=== PATIENT | female | born 1930 | race Caucasian/White ===

== ENCOUNTER 2016-11-11 08:34 | Day surgery (SDC) | payer OTHER, BC ==
[2016-11-10 12:14] VITALS: BMI 34.2
[2016-11-11 09:04] LABS: URINE APPEARANCE CLEAR; URINE BILIRUBIN NEGATIVE (NEGATIVE); URINE COLOR LTYELLOW; URINE GLUCOSE (UA) NEGATIVE (NEGATIVE); URINE KETONE NEGATIVE (NEGATIVE); URINE NITRITE NEGATIVE (NEGATIVE); URINE PROTEIN NEGATIVE (NEGATIVE); URINE UROBILINOGEN NEGATIVE E.U./dl (0.2-1.0)
[2016-11-11 09:10] LABS: URINE BLOOD 1+ (NEGATIVE); URINE LEUK ESTERASE 2+ (NEGATIVE)
[2016-11-11 09:49] LABS: URINE HYALINE CAST 1 /lpf; URINE MUCUS RARE; URINE RBC 4 /hpf (0-3); URINE WBC 27 /hpf (3-5)
[2016-11-11] MEDS ORDERED: MIDAZOLAM HCL 2 MG/2 ML SINGLE DOSE VIAL ONE ×2 (12:12→12:29)
[2016-11-11] MEDS ORDERED: ceFAZolin SODIUM 1 GM VIAL ONE (12:16)
[2016-11-11] MEDS ORDERED: ceFAZolin SODIUM 1 GM VIAL IVPB ONE (12:16)
[2016-11-11] MEDS ORDERED: LIDOCAINE HCL 1%, 10 MG/ML (20ML VIAL) IJ ONE (12:23)
[2016-11-11] MEDS ORDERED: LIDOCAINE HCL 1%, 10 MG/ML (20ML VIAL) NR ONE (12:23)
[2016-11-11] MEDS ORDERED: oxyCODONE HCL 5 MG TABLET PO PRN (14:59)
[2016-11-11] MEDS ORDERED: ACETAMINOPHEN 325 MG TABLET (FP) PO PRN (14:59)
[2016-11-11] MEDS ORDERED: ONDANSETRON 4 MG/2 ML VIAL IVPUSH PRN (14:59)
[2016-11-11 15:09] VITALS: TEMP 97.9
[2016-11-11 16:51] VITALS: BP 124/58; PULSE 64
--- NOTE | 2016-11-12 12:32 | OP ---
DATE OF OPERATION: 11/11/2016 PREOPERATIVE DIAGNOSIS: Right breast microcalcification. POSTOPERATIVE DIAGNOSIS: Right breast microcalcification. PROCEDURE: Right breast wire localized excision. SURGEON: Karla Soliman MD ANESTHESIA: Local with IV sedation. ESTIMATED BLOOD LOSS: Minimal. COMPLICATIONS: None. This is a sterile procedure. INDICATIONS: The patient had a screening mammogram that noted cluster microcalcifications in the upper outer right breast. Decision with her daughter was made to go ahead and excise this area for evaluation. The procedure was discussed with all of the questions answered. PROCEDURE IN DETAIL: The patient was brought to [facility] and taken to breast imaging where a wire was used to localize the calcifications in the upper outer right breast and then brought up to the operating room. After IV sedation and IV antibiotics, the right breast was prepped and draped in the usual sterile fashion. The area in the upper right breast was anesthetized with 1% lidocaine without epinephrine. A curvilinear incision was made in the right 12 o'clock location. A wire was used to guide to get down to the area. The tissue was excised en bloc and sent for a specimen radiograph. Initially the specimen radiograph looked like the calcification was not as well visualized, but by the 3rd pictures it seemed like they were kind of smudged; however, I did take additional tissue medially and laterally. In the L1 of the specimen there is some more calcification, though I believe that the original specimen did have a calcification that we were trying to localize that were less evident. The radiologist agrees with this. At this point, once hemostasis was assured, the parenchyma was approximated with interrupted 2-0 Vicryl. Skin was approximated with interrupted 3-0 Vicryl and running 4-0 Prolene. A sterile dressing with Tegaderm and 4X4s was applied. She tolerated the procedure well and was taken to recovery in good condition. Cesar [id number]
--- NOTE | 2016-11-14 13:55 | PATH ---
Surgical Pathology Report Patient Name: GERALDO HAMEED [facility]. Rec. #: [id number] /Age/Gender: 1930 (Age: 86) / F Account: [id number] Location: [facility] SURGICAL Taken: 11/11/2016 Received: 11/11/2016 Reported: 11/14/2016 Physicians: Karla Soliman M.D. Specimen(s) Received A: RIGHT BREAST EXCISIONAL BIOPSY B: RIGHT BREAST MEDIAL TISSUE C: RIGHT BREAST LATERAL TISSUE Clinical History Microcalcifications Final Diagnosis A. BREAST, RIGHT, EXCISIONAL BIOPSY: BENIGN FATTY BREAST TISSUE WITH FOCI OF FIBROCYSTIC CHANGE WITH APOCRINE METAPLASIA, DUCT DILATATION, CYSTS FORMATION WITH FOCAL EVIDENCE OF CYST RUPTURE; FOCAL COARSE CALCIFICATIONS IN VASCULAR ROSE. B. BREAST, RIGHT, MEDIAL TISSUE, EXCISION: BENIGN BREAST TISSUE WITH FIBROCYSTIC CHANGE WITH FOCAL USUAL DUCTAL HYPERPLASIA, APOCRINE METAPLASIA, AND FIBROADENOMATOID CHANGE WITH ASSOCIATED FOCAL MICROCALCIFICATIONS IN BENIGN DUCTS AND COARSE CALCIFICATIONS IN BENIGN STROMA. C. BREAST, RIGHT, LATERAL TISSUE, EXCISION: BENIGN BREAST TISSUE WITH FOCAL FIBROCYSTIC CHANGE WITH DUCT DILATATION AND FOCAL FIBROADENOMATOID CHANGE WITH ASSOCIATED FOCAL MICROCALCIFICATIONS IN BENIGN DUCTS AND COARSE CALCIFICATIONS AND BENIGN STROMA. Electronically Signed Eren Duran M.D. Gross Description A. Received fresh on an AccuGrid labeled "right breast excisional biopsy" is a 6.5 x 3.7 x 1.0 cm irregular, unoriented portion of fibroadipose tissue with a needle localization wire present. There is no skin present. The specimen is inked black and serially sectioned. Sectioning reveals foci of white fibrous tissue. No definitive masses are identified. The specimen is entirely and sequentially submitted in 10 cassettes with the area of the needle localization wire in cassettes 3-7. B. Received fresh on an AccuGrid labeled "right breast medial tissue" is a 5.5 x 4.0 x 1.3 cm irregular, unoriented portion of fibroadipose tissue. There is no needle localization wire present. There is no skin present. The specimen is inked black and serially sectioned. Sectioning reveals foci of white fibrous tissue. No definitive masses are identified. The specimen is entirely and sequentially submitted in 12 cassettes with the area of the lesion identified by mammography in cassette 6-7. C. Received fresh on an AccuGrid labeled "right breast lateral tissue" is a 5.5 x 3.8 x 1.7 cm irregular, unoriented portion of fibroadipose tissue. There is no needle localization wire present. There is no skin present. The specimen is inked black and serially sectioned. Sectioning reveals foci of white fibrous tissue. No definitive masses are identified. Automation Application Engineer sections are sequentially submitted in 8 cassettes with the area of the lesion identified by mammography in cassettes 2-5. Time to fixation: <1h Total formalin fixation time: 7h 11/11/2016 [facility]11/11/2016
== END 2016-11-11 16:51 | disposition home or self-care (01) ==
LOC: JASU-SURG 08:34
PROVIDERS: ATTEND Surgery
PROC: 0HBT0ZX Excision of Right Breast, Open Approach, Diagnostic (ICD-10-PCS; principal; 2016-11-11 12:00)
DX: D24.1 Benign neoplasm of right breast (principal)
CPT/HCPCS: 19281; 81003; 81015; 88307-TC; 94760

== ENCOUNTER 2019-09-15 22:22 | Inpatient (IN) | payer OTHER, BC ==
[2019-09-15 22:28] VITALS: BMI 34.2
--- NOTE | 2019-09-15 23:47 | PDOC ---
Documentation entered by Christine Ospina SCRIBE, acting as scribe for Berenice Jimenez MD. Berenice Jimenez MD: This documentation has been prepared by the Bhavesh thayer Nirvannie, SCRIBE, under my direction and personally reviewed by me in its entirety. I confirm that the documentation accurately reflects all work, treatment, procedures, and medical decision making performed by me. 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 Allergies: Reanna Primary Care Physician: Dr. Smiley String Laster: Dr. Karimi - Physicial Exam PE: 09/15/19 23:47 89-year-old female had an episode of confusion, word searching while speaking to her daughter. Her symptoms have now resolved. She has a history of TIAs and is on anticoagulants 09/16/19 01:24 Alert 89-year-old female surrounded by family members Head normocephalic atraumatic Neck is supple Lungs are clear to auscultation bilaterally CVS irregular regular rhythm S1-S2 Abdomen nontender Skin warm and dry Extremities no lower extremity edema, or erythema Neuro alert and oriented conversant no drift motor strength 5 of 5 bilaterally clear speech, no facial droop - Medical Decision Making 09/16/19 01:52 CAT scan of the head findings There is no acute intraparenchymal hemorrhage There is no intra-or extra-axial collection There is no mass-effect or midline shift There is a 1.2 x 2 x 1.7 cm area of diminished density in the left anterior temporal lobe suggesting acute ischemia Decker-white matter differentiation is maintained The ventricles are normal size and position for the patient's age There is chronic periventricular small vessel ischemic change The paraspinal paranasal sinuses and mastoid air cells are unopacified Calvarium and soft tissues are unremarkable 09/16/19 01:54 Patient admitted for TIA
[2019-09-15] MEDS ORDERED: ACETAMINOPHEN 1000 MG/100 ML VIAL (NON FORMULARY) IVPB ONE (23:57)
[2019-09-16] MEDS ORDERED: ACETAMINOPHEN INJECTION 100 ML IVPB ONE
[2019-09-16] MEDS ORDERED: ASPIRIN 81 MG CHEWABLE TABLETS PO ONE (00:16)
[2019-09-16] MEDS: SODIUM CHLORIDE 1,000 ML IV SCH (00:28)
[2019-09-16] MEDS ORDERED: ASPIRIN 81 MG CHEWABLE TABLETS ONE (00:33)
[2019-09-16 00:56] LABS: BASO % 0.4 % (0-2.0); EOS % 2.9 % (0-4.5); HEMATOCRIT 40.7 % (32.4-45.2); LYMPH % 22.4 % (8-40); MCH 33.6 pg (25.7-33.7); MCHC 34.3 g/dl (32.0-36.0); MEAN CELL VOLUME 98.1 fl (80-96); MONO % 7.5 % (3.8-10.2); NEUT % 66.8 % (42.8-82.8); PLATELET COUNT 142 K/MM3 (134-434); RBC 4.15 M/mm3 (3.60-5.2); RDW 13.4 % (11.6-15.6); WHITE BLOOD COUNT 7.1 K/mm3 (4.0-10.0)
[2019-09-16 00:57] LABS: INR 2.37 (0.83-1.09); PROTHROMBIN TIME (PATIENT) 28.2 SEC (9.7-13.0)
--- NOTE | 2019-09-16 00:58 | PDOC ---
History of Present Illness <Berenice Jimenez - Last Filed: 09/16/19 01:26> - History of Present Illness Initial Comments: 09/16/19 01:57 Ms. Finney is a 89 y/o woman w/hx sick sinus syndrome s/p pacemaker on xarelto, HTN, asthma, prior CVAs with no residual deficits presenting 1.5 hours after an episode of word finding difficulty and nonsensical arm movements. She is accompanied by a friend who witnessed the event. THey report that while on the phone with her daughter she had word finding difficulty, and her R arm was grasping outwards. The episode resolved entirely in 5 minutes. She denies any weakness, confusion, paresthesias, speech impairments, or pain anywhere at this time. <Artis May - Last Filed: 09/16/19 02:19> - General Chief Complaint: Altered Mental Status Stated Complaint: SLURRED SPEECH Time Seen by Provider: 09/15/19 23:22 Past History <Berenice Jimenez - Last Filed: 09/16/19 01:26> - Past Medical History Anemia: No Asthma: Yes Cancer: No Cardiac Disorders: Yes (PACEMAKER) CVA: Yes COPD: No CHF: No Dementia: No Diabetes: No GI Disorders: No Disorders: No HTN: Yes Hypercholesterolemia: No Liver Disease: No Seizures: No Thyroid Disease: No - Surgical History Abdominal Surgery: No Appendectomy: No Cardiac Surgery: No (PACEMAKER) Cholecystectomy: No Lung Surgery: No Neurologic Surgery: No Orthopedic Surgery: Yes (BOTH HANDS) - Immunization History Immunization Up to Date: No - Psycho Social/Smoking Cessation Hx Smoking Status: No Smoking History: Never smoked Have you smoked in the past 12 months: No Number of Cigarettes Smoked Daily: 0 Hx Alcohol Use: Yes (Ocassional) Drug/Substance Use Hx: No Substance Use Type: Alcohol Hx Substance Use Treatment: No <Artis May - Last Filed: 09/16/19 02:19> - Past Medical History Allergies/Adverse Reactions: Allergies Allergy/AdvReac Type Severity Reaction Status Date / Time No Known Drug Allergies Allergy Unknown Verified 09/15/19 22:28 CLAMS Allergy Severe Vomiting Uncoded 09/15/19 22:28 Home Medications: Ambulatory Orders Metoprolol Succinate [Toprol XL -] 50 mg PO DAILY 12/09/14 Albuterol 0.083% Nebulizer Nati [Ventolin 0.083% Nebulizer Soln -] 1 neb NEB TID PRN 10/28/15 Betaxolol HCl 0.25% [Betoptic S 0.25% -] 1 drop OD BID 10/28/15 Rivaroxaban [Xarelto] 15 mg PO DAILY 10/28/15 Review of Systems - Review of Systems Able to Perform ROS?: Yes Comments:: 09/16/19 01:56 GENERAL/CONSTITUTIONAL: No fever or chills. No weakness. HEAD, EYES, EARS, NOSE AND THROAT: No change in vision. No ear pain or discharge. No sore throat. CARDIOVASCULAR: No chest pain or shortness of breath RESPIRATORY: No cough, wheezing, or hemoptysis. GASTROINTESTINAL: No nausea, vomiting, diarrhea or constipation. GENITOURINARY: No dysuria, frequency, or change in urination. MUSCULOSKELETAL: No joint or muscle swelling or pain. No neck or back pain. SKIN: No rash NEUROLOGIC: No headache, vertigo, loss of consciousness, or change in strength/sensation. ENDOCRINE: No increased thirst. No abnormal weight change HEMATOLOGIC/LYMPHATIC: No anemia, easy bleeding, or history of blood clots. ALLERGIC/IMMUNOLOGIC: No hives or skin allergy. <Artis May - Last Filed: 09/16/19 02:19> *Physical Exam - Vital Signs Last Vital Signs Temp Pulse Resp BP Pulse Ox 97.2 F L 95 H 18 137/76 96 09/15/19 22:24 09/15/19 22:24 09/15/19 22:24 09/15/19 22:24 09/15/19 22:24 <Berenice Jimenez - Last Filed: 09/16/19 01:26> - Vital Signs Last Vital Signs Temp Pulse Resp BP Pulse Ox 97.2 F L 95 H 18 137/76 96 09/15/19 22:24 09/15/19 22:24 09/15/19 22:24 09/15/19 22:24 09/15/19 22:24 - Physical Exam 09/16/19 01:56 GENERAL: Awake, alert, and fully oriented, in no acute distress HEAD: No signs of trauma, normocephalic, atraumatic EYES: PERRLA, EOMI, sclera anicteric, conjunctiva clear ENT: Auricles normal inspection, hearing grossly normal, nares patent, oropharynx clear without exudates. Moist mucosa NECK: Normal ROM, supple, no lymphadenopathy, JVD, or masses LUNGS: No distress, speaks full sentences, clear to auscultation bilaterally HEART: Regular rate and rhythm, normal S1 and S2, no murmurs, rubs or gallops, peripheral pulses normal and equal bilaterally. ABDOMEN: Soft, nontender, normoactive bowel sounds. No guarding, no rebound. No masses EXTREMITIES : Normal inspection, Normal range of motion, no edema. No clubbing or cyanosis NEUROLOGICAL: Cranial nerves II through XII grossly intact. Normal speech, normal gait, no focal sensorimotor deficits SKIN: Warm, Dry, normal turgor, no rashes or lesions noted <Artis May - Last Filed: 09/16/19 02:19> NIH Stroke Scale - Last Known Well Date/Time & Onset Date Last Known Well: 09/15/19 Time Last Known Well: 22:00 - Initial Evaluation Level of consciousness: Alert Ask patient the month and their age: Answers both correctly Ask patient to open & close eyes; make fist and let go: Obeys both correctly Best gaze (horizontal eye movement): Normal Visual field testing: No visual field loss Facial paresis (Show teeth/raise eyebrows/close eyes tight): Normal symmetrical movement Motor Function: Left Arm: Normal Motor Function: Right Arm: Normal (extends arm 90 (or 45) degrees for 10 seconds without drift Motor Function: Left Leg: Normal (extends leg 30 degrees for 5 seconds without drift) Motor Function: Right Leg: Normal (extends leg 30 degrees for 5 seconds without drift) Limb Ataxia: No ataxia Sensory(Use pinprick test arms,legs,trunk,face/side to side): Normal Best language (Describe picture, name items, read sentences): No Aphasia Dysarthria (read several words): Normal articulation Extinction and Inattention: No abnormality - Total Score NIH Stroke Scale Score: 0 <Artis May - Last Filed: 09/16/19 02:19> tPA Exclusion Checklist 0-3hr - Time Elapsed Date last known well: 09/15/19 Time last known well: 22:00 Elaspsed time: Day(s) and 4 Hour(s) and 18 Minutes - Thrombolytic Therapy Candidate Is the patient eligible for Thrombolytic Therapy?: No - Exclusion Criteria 0-3hr SBP greater than 185 or DBP greater than 110mmHg despite tx: No Recent IC/spinal surgery,head trauma or stroke w/in last 3mo: No Hx of previous IC hemorrhage, IC neoplasm, AVM or aneurysm: No Active internal bleeding: No Blding diathesis(low plt ct, inc PTT,INR>1.7 or use of NOAC): No Symptoms suggest subarachnoid hemorrhage: No CT demonstrates multilobar infarct(>1/3 cerebral hemiphere): No Arterial puncture at noncompressible site in previous 7 days: No Blood glucose concentration less than 50mg/dL (2.7mmol/L): No - Relative Exclusion Criteria 0-3h Care team unable to determine eligibility: No IV/IA thrombolysis/thrombectomy @ another hosp prior arrival: No Life expectancy <1yr/severe co-morbid illness/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: No : No Patient/family refused: No Stroke severity too mild (non-disabling): Yes Recent acute AL (w/in previous 3 months): No Seizure at onset with postictal residual neuro impairments: No Major surgery or serious trauma w/in previous 14 days: No Recent GI or hemorrhage (w/in previous 21 days): No - Ineligibility reason(s) Reasons No tPA given: See reason(s) noted above <Artis May - Last Filed: 09/16/19 02:19> Critical Care Time/MDM Note - Medical Decision Making Note: 09/16/19 02:14 89F w/hx sick sinus s/p pacemaker on xarelto, prior CVAs p/w 5 minute episode of word finding difficulty, now resolved, with no focal neuro deficits on exam. NIHSS = 0 at this time. Ddx includes CVA, TIA, seizure. Plan: CT Head stroke protocol CBC CMP EKG CXR Troponin PT/INR, APTT Cholesterol panel UA Urine culture BGM Dispo: Admit --- CT Head read called in by radiology - CT notable for L temporal diminished attenuation suggestive of acute ischemia. --- Case discussed with Dr. Hodgson (Neurology). Plan for admission for inpatient MRI, 81 ASA, and Xarelto dosage. --- CBC, CMP - wnl troponin - negative Case discussed with Dr. Fletcher. Patient admitted. <Artis May - Last Filed: 09/16/19 02:19> Discharge <Berenice Jimenez - Last Filed: 09/16/19 01:26> - Discharge Information Problems reviewed: Yes - Admission Yes <Artis May - Last Filed: 09/16/19 02:19> - Discharge Information Clinical Impression/Diagnosis: CVA (cerebral vascular accident) Qualifiers: CVA mechanism: unspecified Qualified Code(s): I63.9 - Cerebral infarction, unspecified Condition: Stable
[2019-09-16 00:59] LABS: ACTIVATED PTT 58.5 SECONDS (25.2-36.5)
[2019-09-16 01:10] LABS: ALBUMIN 3.6 g/dl (3.4-5.0); ALK PHOS 72 U/L (45-117); ANION GAP 8 MMOL/L (8-16); BILIRUBIN,TOTAL 0.8 mg/dL (0.2-1); BLOOD UREA NITROGEN 18.7 mg/dL (7-18); CALCIUM 8.2 mg/dL (8.5-10.1); CHLORIDE 107 mmol/L (98-107); CHOLESTEROL 156 mg/dL (50-200); CO2 26 mmol/L (21-32); CREATININE 0.9 mg/dL (0.55-1.3); GLUCOSE,RANDOM 89 mg/dL (74-106); HDL CHOLESTEROL 53 mg/dL (40-60); LDL CHOLESTEROL (ONLY SJRH) 89 mg/dL (5-100); POTASSIUM 4.4 mmol/L (3.5-5.1); SGOT/AST 25 U/L (15-37); SGPT/ALT 22 U/L (13-61); SODIUM 141 mmol/L (136-145); TOT PROT 7.2 g/dl (6.4-8.2); TRIGLYCERIDES 79 mg/dL (0-150)
[2019-09-16] MEDS ORDERED: RIVAROXABAN 15 MG TABLET PO ONE (01:25)
[2019-09-16] MEDS ORDERED: ALBUTEROL SO4 0.083% IH SOL 2.5 MG/3 ML VIAL.NEB. NEB PRN (01:47)
[2019-09-16 03:39] LABS: EPI CELLS 0.6 /HPF (0-5/HPF); HYALINE CASTS 1 /lpf (0-8); URINE APPEARANCE CLEAR; URINE BACTERIA 5.3 /hpf (NEGATIVE); URINE BILIRUBIN NEGATIVE (NEGATIVE); URINE GLUCOSE (UA) NEGATIVE (NEGATIVE); URINE KETONE NEGATIVE (NEGATIVE); URINE LEUK ESTERASE TRACE (NEGATIVE); URINE NITRITE NEGATIVE (NEGATIVE); URINE PROTEIN NEGATIVE (NEGATIVE); URINE RBC 1 /hpf (0-4); URINE UROBILINOGEN 0.2 mg/dL (0.2-1.0); URINE WBC 5 /hpf (0-5)
[2019-09-16 06:51] LABS: URINE COLOR 476153
--- NOTE | 2019-09-16 09:27 | EKG ---
Test Reason : Blood Pressure : / mmHG Vent. Rate : 077 BPM Atrial Rate : 057 BPM P-R Int : 000 ms QRS Dur : 080 ms QT Int : 408 ms P-R-T Axes : 000 -16 001 degrees QTc Int : 461 ms ATRIAL FIBRILLATION NONSPECIFIC ST AND T WAVE ABNORMALITY ABNORMAL ECG WHEN COMPARED WITH ECG OF 05-NOV-2016 09:30, ATRIAL FIBRILLATION HAS REPLACED SINUS RHYTHM NONSPECIFIC T WAVE ABNORMALITY HAS REPLACED INVERTED T WAVES IN ANTERIOR LEADS Confirmed by Fernando Dumont ([id number]) on 09/16/2019 9:27:25 AM Referred By: Confirmed By:Fernando Dumont
--- NOTE | 2019-09-16 10:32 | CON.NEURO ---
Consult Consult Specialty:: Rema Referred by:: ER - History of Present Illness History of Present Illness: 89 years old [place] with sudden onset of cofsuion., Called last night Head Ct was normal Humphries=d bilaterla leg weakness no CP no recent travel no fever WBcs was normal - History Source History Provided By: Patient - Past Medical History Cardio/Vascular: Yes: AFIB, Other (pacer dep) Pulmonary: Yes: Asthma Psych: Yes: Anxiety Musculoskeletal: Yes: Osteoarthritis - Past Surgical History Past Surgical History: Yes: Permanent Pacemaker - Alcohol/Substance Use Hx Alcohol Use: Yes (Ocassional) History of Substance Use: reports: None - Smoking History Smoking history: Never smoked Have you smoked in the past 12 months: No Aproximately how many cigarettes per day: 0 - Social History ADL: Independent History of Recent Travel: No Home Medications - Allergies Allergies/Adverse Reactions: Allergies Allergy/AdvReac Type Severity Reaction Status Date / Time No Known Drug Allergies Allergy Unknown Verified 09/15/19 22:28 CLAMS Allergy Severe Vomiting Uncoded 09/15/19 22:28 - Home Medications Home Medications: Ambulatory Orders Metoprolol Succinate [Toprol XL -] 50 mg PO BID 12/09/14 Betaxolol HCl 0.25% [Betoptic S 0.25% -] 1 drop OD BID 10/28/15 Rivaroxaban [Xarelto] 20 mg PO DAILY 10/28/15 Albuterol 2.5/Ipratropium 0.5 [Duoneb -] 1 amp IH DAILY 09/16/19 Digoxin [Lanoxin -] 0.125 mg PO DAILY 09/16/19 Montelukast Sodium [Singulair] 10 mg PO DAILY 09/16/19 Vit C/Vit E AC/Lut/Copper/Zinc [Preservision Lutein Softgel] 1 cap PO DAILY 09/16/19 Family Medical History Family History: Unremarkable Review of Systems - Review of Systems Constitutional: reports: No Symptoms Eyes: reports: No Symptoms HENT: reports: No Symptoms Neurological: reports: Confusion, Headache, Incoordination, Numbness, Parasthesia Physical Exam-Neuro Vital Signs: Vital Signs Temperature 97.7 F 09/16/19 07:50 Pulse Rate 75 09/16/19 07:50 Respiratory Rate 18 09/16/19 07:50 Blood Pressure 116/86 09/16/19 07:50 O2 Sat by Pulse Oximetry (%) 95 09/16/19 07:50 Constitutional: Yes: Well Nourished Neck: Yes: WNL Cardiovascular: Yes: WNL Labs: CBC, BMP 09/16/19 00:43 09/16/19 00:20 INR, PTT INR 2.37 (0.83-1.09) H 09/16/19 00:20 - Neuro Exam Level Of Consciousness: Yes: Oriented to Person, Oriented to Place, Oriented to Time Eyes: Yes: PERRLA Speech: WNL Dominant Hand: Right Cranial Nerves II-XII Intact: Yes Gag: Present DTR's: 1+ Right Bicep, 1+ Left Tricep, 1+ Right Tricep, 1+ Left Brachioradialis Response to light touch: Normal Response to pain prick: Normal Response to temperature: Normal Response to vibration: Normal Motor Strength: 3/5: Left Arm, Right Arm, Left Leg, Right Leg Gait: Deferred Imaging - Results Cat Scan: Image Reviewed Problem List - Problems (1) CVA (cerebral vascular accident) Code(s): I63.9 - CEREBRAL INFARCTION, UNSPECIFIED Qualifiers: CVA mechanism: unspecified Qualified Code(s): I63.9 - Cerebral infarction, unspecified Assessment/Plan doubt it is a TIA [facility] Shyam SCD Thanks Mert Hodgosn
[2019-09-16] MEDS ORDERED: DIGOXIN 0.125 MG TABLET (FP) ONE (11:01)
[2019-09-16] MEDS: DIGOXIN 0.125 MG TABLET (FP) PO SCH (11:06)
[2019-09-16] MEDS: metoPROLOL SUCCINATE 25 MG TAB.SR.24H (FP) PO SCH (11:06)
--- NOTE | 2019-09-16 12:59 | HP ---
Admitting History and Physical - Primary Care Physician PCP: Donavan Smiley - Admission Chief Complaint: slurred speech History of Present Illness: 89 YO Female with Hx of ATF (on a/c), Htn, asthma who resides alone in the community abruptly developed difficulty speaking while on the phone with her daughter (who lives in [place]). There was some possible focal mobility loss of the RUE but that was short lived. The speech difficulty apparently resolved when she was seen in the ER. She denied any CP; SOB, wheezing, cough, gagging, visual changes, tremors. She did not lose ability to walk. She had a similar episode many yrs ago resulting in a CVA. She was taken to ER by a friend. History Source: Patient, Family Member Limitations to Obtaining History: Poor Historian - Past Medical History BOX TENDER: Yes: CVA (old) Cardiovascular: Yes: AFIB, HTN, Other (pacer dep) Pulmonary: Yes: Asthma Psych: Yes: Anxiety Musculoskeletal: Yes: Osteoarthritis Additional Past Medical History: Mac degen; glaucoma - Past Surgical History Past Surgical History: Yes: Permanent Pacemaker - Smoking History Smoking history: Never smoked Have you smoked in the past 12 months: No Aproximately how many cigarettes per day: 0 - Alcohol/Substance Use Hx Alcohol Use: Yes (Ocassional) History of Substance Use: reports: None - Social History Usual Living Arrangement: Yes: Alone ADL: Independent History of Recent Travel: No Home Medications - Allergies Allergies/Adverse Reactions: Allergies Allergy/AdvReac Type Severity Reaction Status Date / Time No Known Drug Allergies Allergy Unknown Verified 09/15/19 22:28 CLAMS Allergy Severe Vomiting Uncoded 09/15/19 22:28 - Home Medications Home Medications: Ambulatory Orders Metoprolol Succinate [Toprol XL -] 50 mg PO BID 12/09/14 Betaxolol HCl 0.25% [Betoptic S 0.25% -] 1 drop OD BID 10/28/15 Rivaroxaban [Xarelto] 20 mg PO DAILY 10/28/15 Albuterol 2.5/Ipratropium 0.5 [Duoneb -] 1 amp IH DAILY 09/16/19 Digoxin [Lanoxin -] 0.125 mg PO DAILY 09/16/19 Montelukast Sodium [Singulair] 10 mg PO DAILY 09/16/19 Vit C/Vit E AC/Lut/Copper/Zinc [Preservision Lutein Softgel] 1 cap PO DAILY 09/16/19 Family Medical History Family History: Unremarkable Review of Systems - Review of Systems Constitutional: reports: Weakness (resolved) Eyes: reports: No Symptoms HENT: reports: No Symptoms Neck: reports: No Symptoms Cardiovascular: reports: No Symptoms Respiratory: reports: No Symptoms Gastrointestinal: reports: Other (loose stools after eating spinach) Genitourinary: reports: Incontinence (not new) Breasts: reports: No Symptoms Reported Musculoskeletal: reports: Decreased ROM Integumentary: reports: No Symptoms Neurological: reports: Change in Speech (resolved) Endocrine: reports: No Symptoms Psychiatric: reports: No Symptoms Physical Examination Vital Signs: Vital Signs Temperature 97.7 F 09/16/19 07:50 Pulse Rate 75 09/16/19 07:50 Respiratory Rate 18 09/16/19 07:50 Blood Pressure 116/86 09/16/19 07:50 O2 Sat by Pulse Oximetry (%) 95 09/16/19 07:50 Constitutional: Yes: No Distress, Calm Eyes: Yes: Conjunctiva Clear, EOM Intact HENT: Yes: WNL (no droop) Neck: Yes: WNL Cardiovascular: Yes: Pulse Irregular Respiratory: Yes: Regular Gastrointestinal: Yes: Normal Bowel Sounds, Soft ...Rectal Exam: Yes: Deferred Renal/: Yes: WNL Musculoskeletal: Yes: WNL Extremities: Yes: WNL Edema: No Peripheral Pulses: Left Doralis Pedis: 1+, Right Dorsalis Pedis: 1+ Integumentary: Yes: WNL Neurological: Yes: Alert, Oriented (no gross focal deficit, no gross confusion, able to move all extrem on command; speech fluent to baseline), Unsteady Gait (not new) ...Motor Strength: WNL Psychiatric: Yes: WNL Labs: CBC, BMP 09/16/19 00:43 09/16/19 00:20 CBCD WBC 7.1 K/mm3 (4.0-10.0) 09/16/19 00:43 RBC 4.15 M/mm3 (3.60-5.2) 09/16/19 00:43 Hgb 14.0 GM/dL (10.7-15.3) 09/16/19 00:43 Hct 40.7 % (32.4-45.2) 09/16/19 00:43 MCV 98.1 fl (80-96) H 09/16/19 00:43 MCHC 34.3 g/dl (32.0-36.0) 09/16/19 00:43 RDW 13.4 % (11.6-15.6) 09/16/19 00:43 Plt Count 142 K/MM3 (134-434) D 09/16/19 00:43 MPV 9.0 fl (7.5-11.1) 09/16/19 00:43 CMP Sodium 141 mmol/L (136-145) 09/16/19 00:20 Potassium 4.4 mmol/L (3.5-5.1) 09/16/19 00:20 Chloride 107 mmol/L (98-107) 09/16/19 00:20 Carbon Dioxide 26 mmol/L (21-32) 09/16/19 00:20 Anion Gap 8 MMOL/L (8-16) 09/16/19 00:20 BUN 18.7 mg/dL (7-18) H 09/16/19 00:20 Creatinine 0.9 mg/dL (0.55-1.3) 09/16/19 00:20 Random Glucose 89 mg/dL (74-106) 09/16/19 00:20 Calcium 8.2 mg/dL (8.5-10.1) L 09/16/19 00:20 Total Bilirubin 0.8 mg/dL (0.2-1) 09/16/19 00:20 AST 25 U/L (15-37) 09/16/19 00:20 ALT 22 U/L (13-61) 09/16/19 00:20 Alkaline Phosphatase 72 U/L (45-117) 09/16/19 00:20 Total Protein 7.2 g/dl (6.4-8.2) 09/16/19 00:20 Albumin 3.6 g/dl (3.4-5.0) 09/16/19 00:20 CARDIAC ENZYMES Creatine Kinase 36 U/L (26-192) 09/16/19 02:10 Troponin I < 0.02 ng/ml (0.00-0.05) 09/16/19 02:10 Urine Test Results Urine Color [id number] 09/16/19 03:21 Urine Appearance Clear 09/16/19 03:21 Urine pH 5.0 (5.0-8.0) D 09/16/19 03:21 Ur Specific Sharon 1.017 (1.010-1.035) 09/16/19 03:21 Urine Protein Negative (NEGATIVE) 09/16/19 03:21 Urine Glucose (UA) Negative (NEGATIVE) 09/16/19 03:21 Urine Ketones Negative (NEGATIVE) 09/16/19 03:21 Urine Blood Negative (NEGATIVE) 09/16/19 03:21 Urine Nitrite Negative (NEGATIVE) 09/16/19 03:21 Urine Bilirubin Negative (NEGATIVE) 09/16/19 03:21 Ur Leukocyte Esterase Trace (NEGATIVE) 09/16/19 03:21 Imaging - Results Cat Scan: Report Reviewed EKG: Report Reviewed Problem List - Problems (1) TIA (transient ischemic attack) Assessment/Plan: appears to have resolved; cause not clear; not likely to be 2nd embolism as she is on DOAC and has high INR. Could be 2nd low BP state causing neuro Sx due to poor perfusion of already poorly vascular part of the LT hemisphere. Head CT does not speak for new territorial infarct but shows volume loss; chronic ischemic changes, encephalomalacia of Lt temp lobe. PLAN: to cont DOAC; 1 dose of asa given; avoid low BP states, avoid dehydration, MRI cannot be done 2nd presence of Pacer; will add Statin. Code(s): G45.9 - TRANSIENT CEREBRAL ISCHEMIC ATTACK, UNSPECIFIED (2) Persistent atrial fibrillation Assessment/Plan: chronic; HR okay; cont BB and A/c Code(s): I48.1 - PERSISTENT ATRIAL FIBRILLATION * DO NOT USE * (3) Pacemaker Assessment/Plan: placed some yrs ago because of SSS: PLAN: will get Cardio consult Code(s): Z95.0 - PRESENCE OF CARDIAC PACEMAKER (4) Asthma Assessment/Plan: stable; Prn Neb Tx Code(s): J45.909 - UNSPECIFIED ASTHMA, UNCOMPLICATED Qualifiers: Asthma persistence: intermittent Asthma complication type: unspecified (5) Glaucoma Assessment/Plan: cont Betaoptic Gtts Code(s): H40.9 - UNSPECIFIED GLAUCOMA Qualifiers: Glaucoma type: unspecified Laterality: bilateral Qualified Code(s): H40.9 - Unspecified glaucoma (6) Elderly person living alone Assessment/Plan: which can serve to amplify the severity of any form of decline (acute or chronic) if there is any delay in receiving assistence in a crisis. She lives alone by choice. Has 2 daughters in [place] (whom she has visited) but has repeatedly declined overtures to move with them (or in nearby locations) Code(s): Z60.2 - PROBLEMS RELATED TO LIVING ALONE (7) History of CVA with residual deficit Assessment/Plan: from an old Lt CVA which has left her RLE with weakned gait (by circumduction) requiring assistive devices and making her prone to falls. Code(s): I69.30 - UNSPECIFIED SEQUELAE OF CEREBRAL INFARCTION (8) Long-term (current) use of anticoagulants, INR goal 2.0-3.0 Assessment/Plan: for stroke prevention by ATF; she claims not to have stopped her DOAC: PLAN: to continue Code(s): Z79.01 - RESIDENTIAL (CURRENT) USE OF ANTICOAGULANTS Assessment/Plan 89 YO F with ATF admitted for TIA who will undergo evaluation and possible med adjustment depending upon findings; Mgmt as out lined above. ~~~~~~~~~~~~~~~~~~~~~~~ Dr Smiley
[2019-09-16] MEDS: BETAXOLOL HCL 0.25% OPHTHALMIC 10 ML DROPSBTL OU SCH ×2 (13:01→22:17)
[2019-09-16] MEDS: RIVAROXABAN 20 MG TABLET PO SCH (18:39)
[2019-09-16] MEDS ORDERED: ZOLPIDEM TARTRATE 5 MG TABLET PO ONE (21:45)
[2019-09-16] MEDS ORDERED: MONTELUKAST NA 10 MG TABLET PO SCH (22:00)
[2019-09-16] MEDS ORDERED: ROSUVASTATIN CA 5 MG TABLET (FP) PO SCH (22:00)
[2019-09-17] MEDS: BETAXOLOL HCL 0.25% OPHTHALMIC 10 ML DROPSBTL OU SCH ×2 (00:49→10:51)
[2019-09-17] MEDS: SODIUM CHLORIDE 1,000 ML IV SCH (07:00)
--- NOTE | 2019-09-17 10:30 | ECHO ---
Name: GERALDO HAMEED Exam:Adult Echocardiogram Study Date: 09/16/2019 02:37 PM Age: 89 yrs Height: 62 in Weight: 187 lb BSA: 1.9 m2 MMode/2D Measurements & Calculations IVSd: 0.95 cm Ao root diam: 3.3 cm LVIDd: 4.3 cm LA dimension: 4.6 cm LVIDs: 3.6 cm LVPWd: 1.4 cm LVPWs: 1.9 cm EDV(Teich): 84.3 ml ESV(Teich): 52.8 ml LVOT diam: 2.0 cm LAV (MOD-bp): 95.0 ml RV S Tito: 10.3 cm/sec Doppler Measurements & Calculations MV E max tito: 93.9 cm/sec Ao V2 max: 125.0 cm/sec MV A max tito: 30.2 cm/sec Ao max P.3 mmHg MV E/A: 3.1 QUIANA(V,D): 1.8 cm2 MV dec time: 0.15 sec LV V1 max P.0 mmHg MR max tito: 458.3 cm/sec LV V1 max: 70.6 cm/sec MR max P.3 mmHg TR max tito: 207.2 cm/sec PA V2 max: 74.9 cm/sec TR max P.4 mmHg PA max P.3 mmHg PI end-d tito: 134.4 cm/sec Med Peak E' Tito: 3.2 cm/sec Med E/e': 29.2 Lat Peak E' Tito: 8.3 cm/sec Lat E/e': 11.3 Procedure A complete two-dimensional transthoracic echocardiogram was performed (2D, M-mode, Doppler and color flow Doppler). Technically limited study. Left Ventricle The left ventricle is normal in size. Left ventricular systolic function is mild to moderately reduce d. Ejection Fraction = 40-45%. There is basal anteroseptal wall moderate hypokinesis. There is mid anter oseptal wall moderate hypokinesis. There is basal inferoseptal wall mild hypokinesis. There are regional wall motion abnormalities as specified. Right Ventricle The right ventricle is normal size. There is a pacemaker lead in the right ventricle. Right ventricul ar function cannot be assessed due to poor image quality. Atria The left atrium is mildly dilated. Right atrial size is normal. Mitral Valve There is mild mitral annular calcification. There is mild to moderate mitral regurgitation. Tricuspid Valve The tricuspid valve is normal in structure and function. There is mild to moderate tricuspid regurgit ation. Pulmonary artery systolic pressure is at least 29 mmHg if RA pressure is assumed 8 mmHg. Aortic Valve There is mild aortic sclerosis.;. No aortic regurgitation is present. Pulmonic Valve The pulmonic valve is not well visualized. Trace pulmonic valvular regurgitation. Great Vessels The aortic root is normal size. Pericardium/Pleura There is no pericardial effusion. Interpretation Summary Technically limited study Left ventricular systolic function is mild to moderately reduced. There are regional wall motion abnormalities as specified. Ejection Fraction = 40-45%. There is a pacemaker lead in the right ventricle. Right ventricular function cannot be assessed due to poor image quality. The left atrium is mildly dilated. Right atrial size is normal. There is mild mitral annular calcification. There is mild to moderate mitral regurgitation. There is mild to moderate tricuspid regurgitation. Pulmonary artery systolic pressure is at least 29 mmHg if RA pressure is assumed 8 mmHg There is mild aortic sclerosis. Trace pulmonic valvular regurgitation. There is no pericardial effusion. Pedro Caldera MD 09/17/2019 10:29 AM
[2019-09-17] MEDS: DIGOXIN 0.125 MG TABLET (FP) PO SCH (10:51)
[2019-09-17] MEDS: metoPROLOL SUCCINATE 25 MG TAB.SR.24H (FP) PO SCH (10:51)
--- NOTE | 2019-09-17 12:54 | CON.CARD ---
Cardiology Consult (text) - Consultation Consultation Note: Chief Complaint: Events noted, notes reviewed, sudden onset of confusion with right upper extremity weakness- clinically resolved, denies any chest discomfort or dyspnea History of Present Illness: Seen and examined on Telemetry. Full consult dictated - Current Medication List Current Medications Albuterol Sulfate (Ventolin 0.083% Nebulizer Soln -) 1 amp NEB Q8H PRN PRN Reason: SHORT OF BREATH/WHEEZING Betaxolol HCl (Betoptic S 0.25% -) 1 drop OU BID [facility] Last Admin: 09/17/19 10:51 Dose: 1 drop Documented by: Digoxin (Lanoxin -) 0.125 mg PO DAILY [facility] Last Admin: 09/17/19 10:51 Dose: 0.125 mg Documented by: Sodium Chloride (Normal Saline -) 1,000 mls @ 42 mls/hr IV ASDIR [facility] Last Admin: 09/17/19 07:00 Dose: 42 mls/hr Documented by: Metoprolol Succinate (Toprol Xl -) 25 mg PO DAILY [facility] Last Admin: 09/17/19 10:51 Dose: 25 mg Documented by: Montelukast Sodium (Singulair -) 10 mg PO [facility] Last Admin: 09/16/19 22:16 Dose: 10 mg Documented by: Rivaroxaban (Xarelto) 20 mg PO DAILY@1800 [facility] Last Admin: 09/16/19 18:39 Dose: 20 mg Documented by: Rosuvastatin Calcium (Crestor -) 5 mg PO [facility] Last Admin: 09/16/19 22:16 Dose: 5 mg Documented by: - Objective Vital Signs: Last Vital Signs Temp Pulse Resp BP Pulse Ox 97.3 F L 93 H 20 126/70 96 09/17/19 10:00 09/17/19 10:51 09/17/19 10:00 09/17/19 10:00 09/16/19 21:00 Intake & Output 09/14/19 09/15/19 09/16/19 09/17/19 22:59 23:59 23:59 23:59 Intake Total 834 462 Output Total 450 Balance 384 462 Weight Constitutional: No Distress, Calm Neck: Supple Negative JVD No Bruit Respiratory: Diminished Breath Sounds at the Bases Cardiovascular: S1 S2 Irregularly Irregular Gastrointestinal: Soft Benign Normal Bowel Sounds Ext: Trace Edema/Ecchymosis/Bruising noted Labs: CBC, BMP 09/16/19 00:43 09/16/19 00:20 Hepatic Panel Total Bilirubin 0.8 mg/dL (0.2-1) 09/16/19 00:20 AST 25 U/L (15-37) 09/16/19 00:20 ALT 22 U/L (13-61) 09/16/19 00:20 Alkaline Phosphatase 72 U/L (45-117) 09/16/19 00:20 Albumin 3.6 g/dl (3.4-5.0) 09/16/19 00:20 INR, PTT INR 2.37 (0.83-1.09) H 09/16/19 00:20 Assessment/Plan ASSESSMENT: 1. Clinical presentation suggestive of transient ischemic attack in a patient with prior history of cerebrovascular event 2. Persistent atrial fibrillation/rate controlled, [id number] score of 7 on DOAC's/Xarelto- preadmission sub-therapeutic dosage/corrected dosage post admission 3. Sick sinus syndrome post PPM/Medtronic's device 4. LV systolic dysfunction (mild-moderate in severity) with clinical class 0-I [place] [employer] classification left ventricular failure, euvolemic 5. HTN 6. History CVA 7. History bronchial asthma PLAN: 1. Continue Xarelto at 20 mg once daily with caution and close monitoring of hem oglobin level 2. Continue Toprol XL, dose titration as needed 3. Continue Digoxin therapy with caution and close monitoring of level 4. Recommend initiation of ANTOINE-I or ARBS in view of the above noted LV systolic dysfunction unless they are absolutely contraindicated 5. D/C planning as per the primary team Mayo Karimi M.D.
--- NOTE | 2019-09-17 15:43 | DS ---
Physical Examination Vital Signs: Vital Signs Temperature 97.3 F L 09/17/19 10:00 Pulse Rate 93 H 09/17/19 10:51 Respiratory Rate 20 09/17/19 10:00 Blood Pressure 126/70 09/17/19 10:00 O2 Sat by Pulse Oximetry (%) 93 L 09/17/19 09:00 Constitutional: Yes: Well Nourished, No Distress Eyes: Yes: Conjunctiva Clear, EOM Intact Neck: Yes: Supple Cardiovascular: Yes: Pulse Irregular Respiratory: Yes: Regular Gastrointestinal: Yes: Soft, Abdomen, Obese ...Rectal Exam: Yes: Deferred Extremities: Yes: WNL Edema: No Peripheral Pulses: Left Doralis Pedis: 1+, Right Dorsalis Pedis: 1+ Integumentary: Yes: WNL Neurological: Yes: Alert, Oriented ...Motor Strength: WNL Labs: CBC, BMP 09/16/19 00:43 09/16/19 00:20 Discharge Summary Problems reviewed: Yes Reason For Visit: TRANSIENT ISCHEMIC ATTACK Current Active Problems Asthma (Acute) atrial fibrillation Elderly person living alone (Acute) History of CVA with residual deficit (Acute) Long-term (current) use of anticoagulants, INR goal 2.0-3.0 (Acute) Pacemaker (Acute) TIA (transient ischemic attack) (Acute) Left ventricular dysfunction glaucoma macular degen Hospital Course: 89 YO admiited for TIA (speech slurring) that resolved leaving no residual deficits; she claimed that she did not skip any of her medications. head CT just showed chronic ischemic changes. W/u did not reveal anything striking to suggest definite cause; she regained her baseline functioning. Her Vitals were stable on lower dose betablocker. Echo did show some mild LV dysf of about 40-45%. Findings were discussed with daughter in [place] ([place]) on this day. The plan is to reduce the dose of Toprol to 50mg XL Qd (instead of BID) so as to avoid any hypotensive states. Will resume Xarelto at 20mg as noted by Cardiology. daughter stated that she did not tolerate the ANTOINE-I in the past, (citing low BP effects at lowest doses); will add low diose statin as well. Condition: Stable - Instructions Referrals: Donavan Smiley MD [Primary Care Provider] - - Home Medications Comprehensive Discharge Medication List: Ambulatory Orders Betaxolol HCl 0.25% [Betoptic S 0.25% -] 1 drop OD BID 10/28/15 Rivaroxaban [Xarelto] 20 mg PO DAILY 10/28/15 Albuterol 2.5/Ipratropium 0.5 [Duoneb -] 1 amp IH DAILY 09/16/19 Digoxin [Lanoxin -] 0.125 mg PO DAILY 09/16/19 Montelukast Sodium [Singulair] 10 mg PO DAILY 09/16/19 Vit C/Vit E AC/Lut/Copper/Zinc [Preservision Lutein Softgel] 1 cap PO DAILY 09/16/19 Metoprolol Succinate [Toprol Xl] 50 mg PO DAILY #30 tab.er.24h 09/17/19 Rosuvastatin [Crestor -] 5 mg PO HS #90 tablet 09/17/19
[2019-09-17 16:00] VITALS: BP 157/79; PULSE 116; TEMP 98.7
[2019-09-17] MEDS: RIVAROXABAN 20 MG TABLET PO SCH (17:08)
--- NOTE | 2019-09-17 17:33 | CONS ---
DATE OF CONSULTATION: DATE OF DICTATION: 09/17/2019 REQUESTING PHYSICIAN: Donavan Smiley MD. CHIEF COMPLAINT: Slurred speech, right upper extremity weakness. HISTORY OF PRESENT ILLNESS: Patient is known to our service, an 89-year-old female, of /[place] descent with known history of systolic/diastolic left ventricular dysfunction with chronic class 1 [place] [employer] classification left ventricular failure, permanent atrial fibrillation on chronic anticoagulation therapy with Xarelto, currently on 15 mg 1 daily/subtherapeutic dosage, CHADS2 VASc score of 7, sick sinus syndrome post permanent pacemaker implantation Medtronics device, mitral valve regurgitation, tricuspid valve regurgitation, negative pharmacologic dipyridamole myocardial perfusion imaging study for myocardiac ischemia November 15, 2011, hypertensive cardiovascular disease with intermittent postural hypotension, cerebrovascular disease with residual deficit, peripheral vascular disease mild in severity, partial vocal cord paralysis, reactive airway disease, chronic kidney disease, degenerative joint disease, chronic thrombocytopenia, post mechanical fall sustaining olecranon fracture, post open reduction, internal fixation, and anxiety disorder who presented to [facility] with slurred speech which was noted while conversing with her daughter and in addition questionable right upper extremity weakness. Upon arrival to the emergency room, the above noted symptoms had subsided. CT scan of the head was performed urgently, report of which was noted, diagnosis of cerebrovascular event transient ischemic attack was entertained. Patient currently is resting in bed, denies any focal neurological deficit. Denies any chest discomfort. Patient reports dyspnea with mild to moderate physical exertion. Patient denies any orthopnea, paroxysmal nocturnal dyspnea. Patient reports intermittent bilateral lower extremity edema that worsened in the lateral part of the day. Patient denies any palpitations, dizziness, lightheadedness, or syncope. Patient reports fatigue and tiredness. PAST MEDICAL HISTORY: Systolic/diastolic left ventricular dysfunction with chronic class 1 [place] Heart [employer] classification left ventricular failure, permanent atrial fibrillation on chronic anticoagulation therapy with Xarelto, CHADS2 VASc score of 7, sick sinus syndrome post permanent pacemaker implantation Medtronics device, mitral valve regurgitation, tricuspid valve regurgitation, negative pharmacologic dipyridamole myocardial perfusion imaging study for myocardiac ischemia, hypertensive cardiovascular disease with intermittent postural hypotension, cerebrovascular disease with residual deficit, peripheral vascular disease mild in severity, partial vocal cord paralysis, reactive airway disease, chronic kidney disease, degenerative joint disease, chronic thrombocytopenia, history of mechanical fall sustaining post olecranon fracture, post open reduction and internal fixation, and anxiety disorder. SOCIAL HISTORY: Denies smoking. FAMILY HISTORY: No history of coronary artery disease. ALLERGIES: None reported. MEDICAL THERAPY AT HOME: Included digoxin 0.125 mg once a day, Singulair 10 mg once a day, Toprol XL 50 mg twice a day, Xarelto 15 mg once a day dose of which was adjusted upon admission. REVIEW OF SYSTEMS: Head and neck: Denies headache, photophobia, blurring of vision. Respiratory: Denies cough or sputum production. Cardiovascular: As noted above. Gastrointestinal: Denies nausea, vomiting, diarrhea, abdominal discomfort. Genitourinary: No symptoms reported. Musculoskeletal: Degenerative joint disease. PHYSICAL EXAMINATION: Vital signs: Blood pressure is 126/70 mmHg, pulse rate is 93 beats per minute. Head/Neck: Pupils equally reactive to light and accommodation. Extraocular muscles are intact. Anicteric sclerae. Negative JVD. No bruit appreciated. Chest: Diminished breath sounds at the bases. Cardiovascular: S1, S2 irregularly irregular. Abdomen: Soft, benign. Normoactive bowel sounds. Extremities: Trace edema. Ecchymosis/bruising noted. LABORATORY: CBC revealed a white cell count of 7.1, hemoglobin 14, platelet count 142. Basic metabolic profile revealed a sodium 141, potassium 4.4, BUN 18.7, creatinine 0.9, glucose 89, INR 2.37. ASSESSMENT: 1. Clinical presentation suggestive of transient ischemic attack in a patient with prior history of cerebrovascular event. 2. Persistent atrial fibrillation, rate controlled. CHADS2 VASc score of 7 on anticoagulation therapy with Xarelto. Preadmission subtherapeutic dosage, corrected dosage post admission. 3. Sick sinus syndrome post permanent pacemaker implantation Medtronics device. 4. Systolic left ventricular dysfunction mild to moderate in severity with chronic class 1 [place] [employer] classification left ventricular failure, euvolemic. 5. Hypertension. 6. History of cerebrovascular disease. 7. History of bronchial asthma. RECOMMENDATION: 1. Continuation of Xarelto 20 mg once daily with caution and close monitoring of hemoglobin level. 2. Continuation of Toprol XL and dose titration as needed. 3. Continuation of digoxin therapy with caution and close monitoring of level. 4. Recommend initiation of ANTOINE inhibitor or angiotensin receptor blockers in view of the above-noted systolic left ventricular dysfunction unless they are absolutely contraindicated. 5. Discharge planning as per the primary team. Thank you for the kind referral. HENRRY BRUCE M.D. DAMIAN/[id number]
== END 2019-09-17 17:21 | disposition home health service (06) | DRG 69 ==
LOC: JER 22:22 → JERBED 09-16 00:58 → J4W 09-16 16:53
PROVIDERS: ADMIT Internal Medicine; ATTEND Internal Medicine
DX: G45.9 Transient cerebral ischemic attack, unspecified (principal); I69.351 Hemiplegia and hemiparesis following cerebral infarction affecting right dominant side; I48.19 Other persistent atrial fibrillation; J45.909 Unspecified asthma, uncomplicated; Z60.2 Problems related to living alone; I49.5 Sick sinus syndrome; I10 Essential (primary) hypertension; I25.10 Atherosclerotic heart disease of native coronary artery without angina pectoris; F41.9 Anxiety disorder, unspecified; H35.30 Unspecified macular degeneration; H40.9 Unspecified glaucoma; E66.9 Obesity, unspecified; Z68.34 Body mass index [BMI] 34.0-34.9, adult; Z79.01 Long term (current) use of anticoagulants; Z95.0 Presence of cardiac pacemaker
CPT/HCPCS: 36415; 70450-TC; 80053; 80061; 80162; 81003; 82550; 83036; 83721; 84443; 84484; 85025; 85610; 85651; 85730; 87086; 93005; 93010; 93306-TC; 93880-TC; 97116-GP; 97161-GP; 99285-25; J0131; J7030